=== PATIENT | female | born 1945 ===

== ENCOUNTER 2024-10-11 07:20 | Outpatient (CLI) | payer OTHER ==
[~2024-10-11 07:20] MED LIST: ASA81 MG PO; AVALIDE 150-12.1 TA1 PO; CALCIO; METFORMIN HCL500 MG PO; NAPROXEN500 M1 PO; NORVASC5 MG PO; OMEGA-31000 MG PO; SYMAX DUOT0.375 MG/B PO; TORADOL10 MG PO; TRAMADOL HCL-AP1 TAB PO
== END 2024-10-11 07:21 | disposition home or self-care (01) ==
LOC: NUCLEAR 07:20
PROVIDERS: ATTEND Specialist
DX: I11.9 Hypertensive heart disease without heart failure (principal)
CPT/HCPCS: 78452; 93017; A9500